=== PATIENT | female | born 1950 | race African-American/Black ===

== ENCOUNTER 2018-03-02 16:54 | Emergency (ER) | payer MEDICARE, BC ==
[~2018-03-02] VITALS: Ht 162.6 cm; Wt 60.0 kg
[~2018-03-02 16:54] MED LIST: AMLO5TAB4 GT; ASPI-1159 GT; CARDIZEM GT; CHOL100044 GT; COLACE GT; LABE300T GT; LEVE1000 GT; LIP40 PO; LOSA50TA20 GT; LOV40 SUBCUT; LYRICA GT; MIRT30TA GT; NICO1PAT16 TP; QUET100T GT
[2018-03-02 20:23] LABS: BASOPHILS % 0.7 % (0.0-2.0); EOSINOPHILS % 3.1 % (0.0-5.0); HEMATOCRIT. 36.3 % (36.0-48.0); LYMPHOCYTES % 30.6 % (20.0-50.0); MEAN CORPUSCULAR HEMOGLOBIN 29.7 pg (28.0-32.0); MEAN CORPUSCULAR VOLUME 89.6 fL (81.0-99.0); MONOCYTES % 10.8 % (2.0-8.0); NEUTROPHILS % 54.8 % (40.0-76.0); PLATELET 214 x1000/uL (130-400); RED BLOOD CELL COUNT 4.06 mill/uL (4.2-5.4)
[2018-03-02 20:27] LABS: CHLORIDE 107 mEq/L (98-107)
[2018-03-02 20:28] LABS: INR 1.1; PARTIAL THROMBOPLASTIN TIME 28.7 sec (23.4-31.0); PROTHROMBIN TIME 11.3 sec (9.4-11.6)
[2018-03-03 00:22] VITALS: BP 182/85
== END 2018-03-03 01:15 ==
LOC: ER 16:54
DX: S02.2XXA Fracture of nasal bones, initial encounter for closed fracture (principal); J44.9 Chronic obstructive pulmonary disease, unspecified; F03.90 Unspecified dementia, unspecified severity, without behavioral disturbance, psychotic disturbance, mood disturbance, and anxiety; E78.00 Pure hypercholesterolemia, unspecified; E03.9 Hypothyroidism, unspecified; I10 Essential (primary) hypertension; Z79.82 Long term (current) use of aspirin; Z88.8 Allergy status to other drugs, medicaments and biological substances; W05.0XXA Fall from non-moving wheelchair, initial encounter; Y93.89 Activity, other specified; Y92.89 Other specified places as the place of occurrence of the external cause; Y99.8 Other external cause status
CPT/HCPCS: 36415; 70450; 73521; 80053; 85025; 85610; 85730; 86850; 86900; 99285

== ENCOUNTER 2018-10-27 06:28 | Emergency (ER) | payer MEDICARE, BC, MEDICAID ==
[~2018-10-27] VITALS: Ht 170.2 cm; Wt 74.8 kg
[~2018-10-27 06:28] MED LIST changes: -LABE300T GT; +LABE300T3 GT
[2018-10-27] MEDS ORDERED: MORPHINE SULFATE 10 MG/ML CPJ IM ONE (09:45)
[2018-10-27 11:48] VITALS: BP 141/56
== END 2018-10-27 11:54 | disposition home or self-care (01) ==
LOC: ER 06:28
DX: S00.03XA Contusion of scalp, initial encounter (principal); J44.9 Chronic obstructive pulmonary disease, unspecified; E78.00 Pure hypercholesterolemia, unspecified; F03.90 Unspecified dementia, unspecified severity, without behavioral disturbance, psychotic disturbance, mood disturbance, and anxiety; I10 Essential (primary) hypertension; E03.9 Hypothyroidism, unspecified; W06.XXXA Fall from bed, initial encounter; Y93.89 Activity, other specified; Y92.89 Other specified places as the place of occurrence of the external cause; Y99.8 Other external cause status; Z98.890 Other specified postprocedural states; Z79.82 Long term (current) use of aspirin; Z79.899 Other long term (current) drug therapy; Z88.8 Allergy status to other drugs, medicaments and biological substances
CPT/HCPCS: 70450; 72125; 73060; 96372; 99284; J2270

== ENCOUNTER 2019-07-23 12:33 | Emergency (ER) | payer MEDICARE, BC ==
[~2019-07-23] VITALS: Ht 167.6 cm; Wt 75.0 kg
[~2019-07-23 12:33] MED LIST changes: -ASPI-1159 GT; +ASPI-1393 GT; -LOSA50TA20 GT; +LOSA50TA41 GT
[2019-07-23 14:31] LABS: BASOPHILS % 0.8 % (0.0-2.0); EOSINOPHILS % 2.1 % (0.0-5.0); LYMPHOCYTES % 29.5 % (20.0-50.0); MEAN CORPUSCULAR HEMOGLOBIN 30.8 pg (28.0-32.0); MEAN CORPUSCULAR VOLUME 92.5 fL (81.0-99.0); MEAN PLATELET VOLUME 10.3 fl (7.4-10.4); MONOCYTES % 11.6 % (2.0-8.0); PLATELET 195 x1000/uL (130-400); RED BLOOD CELL COUNT 4.21 mill/uL (4.2-5.4)
[2019-07-23 14:38] LABS: INR 1.1; PROTHROMBIN TIME 11.4 sec (9.6-11.0)
[2019-07-23 14:40] LABS: CHLORIDE 113 mEq/L (98-107)
[2019-07-23] MEDS ORDERED: DIATR MEGLU/DIATRIZOATE SOLN 30ML PEG SCH (16:00)
[2019-07-23 19:00] VITALS: BP 162/89
== END 2019-07-23 19:03 ==
LOC: ER 12:33
DX: K94.29 Other complications of gastrostomy (principal); F03.90 Unspecified dementia, unspecified severity, without behavioral disturbance, psychotic disturbance, mood disturbance, and anxiety; J44.9 Chronic obstructive pulmonary disease, unspecified; E78.00 Pure hypercholesterolemia, unspecified; I10 Essential (primary) hypertension; G40.909 Epilepsy, unspecified, not intractable, without status epilepticus; E03.9 Hypothyroidism, unspecified; I69.354 Hemiplegia and hemiparesis following cerebral infarction affecting left non-dominant side; Z88.8 Allergy status to other drugs, medicaments and biological substances; Y83.3 Surgical operation with formation of external stoma as the cause of abnormal reaction of the patient, or of later complication, without mention of misadventure at the time of the procedure; Y92.128 Other place in nursing home as the place of occurrence of the external cause
CPT/HCPCS: 36415; 74018; 99284; Q9963

== ENCOUNTER 2021-05-06 12:08 | Inpatient (IN) | payer MEDICARE, BC, MEDICAID ==
[~2021-05-06] VITALS: Ht 172.7 cm; Wt 75.3 kg
[~2021-05-06 12:08] MED LIST changes: -ASPI-1393 GT; +ASPI-1497 GT; -CARDIZEM GT; -COLACE GT; -LOV40 SUBCUT; -LYRICA GT; +MIRT-111 GT; -MIRT30TA GT; -NICO1PAT16 TP
[2021-05-06 15:23] LABS: BASOPHILS % 0.6 % (0.0-2.0); EOSINOPHILS % 2.2 % (0.0-5.0); HEMATOCRIT. 36.9 % (36.0-48.0); HEMOGLOBIN. 12.5 g/dL (12.0-16.0); LYMPHOCYTES % 24.5 % (20.0-50.0); MEAN CORPUSCULAR HEMOGLOBIN 31.4 pg (28.0-32.0); MEAN CORPUSCULAR VOLUME 92.7 fL (81.0-99.0); MEAN PLATELET VOLUME 9.8 fl (7.4-10.4); MONOCYTES % 9.1 % (2.0-8.0); NEUTROPHILS % 63.6 % (40.0-76.0); PLATELET 189 x1000/uL (130-400); RED BLOOD CELL COUNT 3.98 mill/uL (4.2-5.4); RED CELL DISTRIBUTION WIDTH 14.8 % (11.6-14.6)
[2021-05-06 15:27] LABS: CHLORIDE 109 mEq/L (98-107)
[2021-05-06] MEDS ORDERED: ACETAMINOPHEN 650MG SUPP PR PRN (20:45)
[2021-05-06] MEDS ORDERED: ONDANSETRON HCL 4MG/2ML INJ IV PRN (20:45)
[2021-05-06] MEDS ORDERED: CLONIDINE 0.1MG TABLET PO PRN (20:45)
[2021-05-06] MEDS: SODIUM CHLORIDE 0.9% 1,000 ML IV SCH (20:57)
[2021-05-06] MEDS: ENOXAPARIN 40MG/0.4ML SYR SUBCUT SCH (21:56)
[2021-05-06 22:30] VITALS: BP 127/73
[2021-05-07] VITALS: BP 144/70
[2021-05-07] MEDS: SODIUM CHLORIDE 0.9% 1,000 ML IV SCH ×3 (00:53→23:25)
[2021-05-07 01:07] LABS: INR 1.2; PROTHROMBIN TIME 12.4 sec (9.6-11.0)
[2021-05-07 04:00] VITALS: BP 113/18
[2021-05-07 07:04] LABS: CHLORIDE 108 mEq/L (98-107)
[2021-05-07] MEDS ORDERED: VALP250S4 GT (07:04)
[2021-05-07] MEDS ORDERED: ERGO1250 GT (07:04)
[2021-05-07 07:22] LABS: BASOPHILS % 0.5 % (0.0-2.0); EOSINOPHILS % 1.1 % (0.0-5.0); HEMATOCRIT. 37.6 % (36.0-48.0); HEMOGLOBIN. 12.4 g/dL (12.0-16.0); LYMPHOCYTES % 25.8 % (20.0-50.0); MEAN CORPUSCULAR VOLUME 93.8 fL (81.0-99.0); MEAN PLATELET VOLUME 9.9 fl (7.4-10.4); MONOCYTES % 12.6 % (2.0-8.0); PLATELET 197 x1000/uL (130-400); RED BLOOD CELL COUNT 4.01 mill/uL (4.2-5.4); RED CELL DISTRIBUTION WIDTH 14.9 % (11.6-14.6)
[2021-05-07 08:00] VITALS: BP 145/88
[2021-05-07 12:00] VITALS: BP 147/77
[2021-05-07] MEDS: LORAZEPAM 2MG/ML CPJ IV PRN (13:03)
[2021-05-07 16:00] VITALS: BP 145/78
[2021-05-07 20:00] VITALS: BP 152/74
[2021-05-07] MEDS: ENOXAPARIN 40MG/0.4ML SYR SUBCUT SCH (21:04)
[2021-05-08] VITALS: BP 144/70
[2021-05-08] MEDS: IPRATROPIUM/ALBUTEROL 0.5-3(2.5)MG/3ML NEB HHN PRN (02:02)
[2021-05-08 04:00] VITALS: BP 159/83
[2021-05-08 08:00] VITALS: BP 156/83
[2021-05-08] MEDS: DEXT 5%/0.45% NACL 1000ML 1,000 ML IV SCH (10:00)
[2021-05-08 12:00] VITALS: BP 166/78
[2021-05-08] MEDS: LORAZEPAM 2MG/ML CPJ IV PRN (13:21)
[2021-05-08 16:00] VITALS: BP 145/89
[2021-05-08] MEDS ORDERED: HYDRALAZINE 10 MG in SODIUM CHLORIDE 0.9% 49.5 ML IV PRN (16:00)
[2021-05-08 16:33] LABS: CHLORIDE 111 mEq/L (98-107)
[2021-05-08 20:00] VITALS: BP 158/88
[2021-05-08] MEDS: ENOXAPARIN 40MG/0.4ML SYR SUBCUT SCH (20:08)
[2021-05-09] VITALS: BP 138/86
[2021-05-09 04:00] VITALS: BP 138/67
[2021-05-09] MEDS: LORAZEPAM 2MG/ML CPJ IV PRN (04:08)
[2021-05-09] MEDS: DEXT 5%/0.45% NACL 1000ML 1,000 ML IV SCH (04:08)
[2021-05-09] MEDS: IPRATROPIUM/ALBUTEROL 0.5-3(2.5)MG/3ML NEB HHN PRN (06:47)
[2021-05-09 07:25] LABS: INR 1.2; PROTHROMBIN TIME 12.3 sec (9.6-11.0)
[2021-05-09 07:26] LABS: CHLORIDE 111 mEq/L (98-107)
[2021-05-09 07:33] LABS: BASOPHILS % 0.6 % (0.0-2.0); EOSINOPHILS % 4.4 % (0.0-5.0); HEMATOCRIT. 34.5 % (36.0-48.0); HEMOGLOBIN. 11.4 g/dL (12.0-16.0); LYMPHOCYTES % 33.7 % (20.0-50.0); MEAN CORPUSCULAR HEMOGLOBIN 31.1 pg (28.0-32.0); MEAN CORPUSCULAR VOLUME 93.5 fL (81.0-99.0); MEAN PLATELET VOLUME 10.1 fl (7.4-10.4); MONOCYTES % 10.6 % (2.0-8.0); NEUTROPHILS % 50.7 % (40.0-76.0); PLATELET 147 x1000/uL (130-400); RED BLOOD CELL COUNT 3.69 mill/uL (4.2-5.4)
[2021-05-09 08:00] VITALS: BP 124/54
[2021-05-09] MEDS ORDERED: POTASSIUM CHLORIDE INJ 40 MEQ in DEXT 5% WATER 500 ML IV SCH (11:00)
[2021-05-09] MEDS: LEVETIRACETAM 250 MG in SODIUM CHLORIDE 0.9% 100 ML IV SCH ×3 (11:00→21:41)
[2021-05-09] MEDS ORDERED: POTASSIUM CHLORIDE INJ 40 MEQ in DEXT 5% WATER 500 ML IV ONE (11:00)
[2021-05-09 12:00] VITALS: BP 117/51
[2021-05-09] MEDS ORDERED: POTASSIUM CHLORIDE 20MEQ/PACKET PO SCH (12:45)
[2021-05-09 16:00] VITALS: BP 121/61
[2021-05-09] MEDS ORDERED: CEFAZOLIN 1000MG PREMIX 50 ML IV NR (16:00)
[2021-05-09 20:00] VITALS: BP 113/47
[2021-05-09] MEDS: ENOXAPARIN 40MG/0.4ML SYR SUBCUT SCH (21:00)
[2021-05-10] VITALS: BP 122/81
[2021-05-10] MEDS: DEXT 5%/0.45% NACL 1000ML 1,000 ML IV SCH (01:00)
[2021-05-10 04:00] VITALS: BP 134/76
[2021-05-10 06:16] LABS: BASOPHILS % 0.6 % (0.0-2.0); EOSINOPHILS % 4.3 % (0.0-5.0); HEMATOCRIT. 37.7 % (36.0-48.0); HEMOGLOBIN. 12.3 g/dL (12.0-16.0); MEAN CORPUSCULAR HEMOGLOBIN 31.3 pg (28.0-32.0); MEAN CORPUSCULAR VOLUME 95.9 fL (81.0-99.0); MEAN PLATELET VOLUME 10.2 fl (7.4-10.4); MONOCYTES % 12.4 % (2.0-8.0); NEUTROPHILS % 54.7 % (40.0-76.0); PLATELET 147 x1000/uL (130-400); RED BLOOD CELL COUNT 3.93 mill/uL (4.2-5.4); RED CELL DISTRIBUTION WIDTH 15.1 % (11.6-14.6)
[2021-05-10 06:31] LABS: CHLORIDE 113 mEq/L (98-107)
[2021-05-10 08:00] VITALS: BP 128/67
[2021-05-10] MEDS: LEVETIRACETAM 250 MG in SODIUM CHLORIDE 0.9% 100 ML IV SCH ×3 (09:00→21:11)
[2021-05-10] MEDS: IPRATROPIUM/ALBUTEROL 0.5-3(2.5)MG/3ML NEB HHN PRN (09:30)
[2021-05-10] MEDS ORDERED: LIDOCAINE HCL 1% 20ML VIAL (Pyxis) INJ ONE (10:59)
[2021-05-10 12:00] VITALS: BP 155/60
[2021-05-10] MEDS: DEXT 5% WATER + KCL 20MEQ/L 1,000 ML IV SCH (12:48)
[2021-05-10] MEDS ORDERED: CEFAZOLIN 1000MG PREMIX 50 ML IV ONE (14:30)
[2021-05-10 16:00] VITALS: BP 168/67
[2021-05-10] MEDS ORDERED: PROPOFOL 200MG/20ML VIAL IV ONE (16:30)
[2021-05-10] MEDS ORDERED: MIDAZOLAM HCL 5 MG/5 ML VIAL ONE (16:30)
[2021-05-10] MEDS ORDERED: SUCCINYLCHOLINE CHLORIDE 200MG/10ML IV ONE (16:31)
[2021-05-10] MEDS ORDERED: ONDANSETRON HCL 4MG/2ML INJ IV PRN (17:30)
[2021-05-10] MEDS ORDERED: HYDROMORPHONE HCL/PF 2MG/ML CPJ IV PRN (17:30)
[2021-05-10] MEDS ORDERED: SODIUM CHLORIDE 0.9% 1,000 ML IV ONE (17:30)
[2021-05-10] MEDS ORDERED: MORPHINE SULFATE 2 MG/ML CPJ (NOT FOR IM USE) IV PRN (17:30)
[2021-05-10] MEDS ORDERED: LABETALOL 5MG/ML SYR 20 MG/4 ML SYRINGE IV NR (18:00)
[2021-05-10] MEDS ORDERED: BLOOD SUGAR DIAGNOSTIC STRIP TEST SCH (19:00)
[2021-05-10] MEDS ORDERED: DEXTROSE 50% WATER 50ML SYRINGE IV PRN (19:00)
[2021-05-10 20:00] VITALS: BP 149/82
[2021-05-10] MEDS: BLOOD SUGAR DIAGNOSTIC STRIP TEST SCH (20:42)
[2021-05-10] MEDS: INSULIN LISPRO 100 UNITS/ML SUBCUT SCH (21:00)
[2021-05-10] MEDS ORDERED: INSULIN LISPRO 100 UNITS/ML SUBCUT SCH (21:00)
[2021-05-10] MEDS: IPRATROPIUM/ALBUTEROL 0.5-3(2.5)MG/3ML NEB HHN SCH (21:08)
[2021-05-10] MEDS: ENOXAPARIN 40MG/0.4ML SYR SUBCUT SCH (21:12)
[2021-05-11] VITALS: BP 137/67
[2021-05-11] MEDS: IPRATROPIUM/ALBUTEROL 0.5-3(2.5)MG/3ML NEB HHN SCH ×6 (00:53→20:08)
[2021-05-11 04:00] VITALS: BP 150/61
[2021-05-11] MEDS: LORAZEPAM 2MG/ML CPJ IV PRN ×2 (04:25→21:02)
[2021-05-11] MEDS: DEXT 5% WATER + KCL 20MEQ/L 1,000 ML IV SCH (06:48)
[2021-05-11 07:18] LABS: CHLORIDE 111 mEq/L (98-107)
[2021-05-11 07:23] LABS: BASOPHILS % 0.4 % (0.0-2.0); EOSINOPHILS % 2.8 % (0.0-5.0); HEMATOCRIT. 34.3 % (36.0-48.0); HEMOGLOBIN. 11.2 g/dL (12.0-16.0); LYMPHOCYTES % 33.7 % (20.0-50.0); MEAN CORPUSCULAR HEMOGLOBIN 31.2 pg (28.0-32.0); MEAN CORPUSCULAR VOLUME 95.6 fL (81.0-99.0); MEAN PLATELET VOLUME 10.4 fl (7.4-10.4); MONOCYTES % 11.9 % (2.0-8.0); NEUTROPHILS % 51.2 % (40.0-76.0); PLATELET 116 x1000/uL (130-400); RED BLOOD CELL COUNT 3.59 mill/uL (4.2-5.4); RED CELL DISTRIBUTION WIDTH 14.7 % (11.6-14.6)
[2021-05-11 08:00] VITALS: BP 166/65
[2021-05-11] MEDS: INSULIN LISPRO 100 UNITS/ML SUBCUT SCH ×2 (09:00→20:59)
[2021-05-11] MEDS ORDERED: POTASSIUM CHLORIDE 20MEQ TABLET SR PO NR (09:00)
[2021-05-11] MEDS ORDERED: PANTOPRAZOLE SODIUM 40 MG/VIAL IV SCH (09:00)
[2021-05-11] MEDS: BLOOD SUGAR DIAGNOSTIC STRIP TEST SCH ×2 (09:15→20:59)
[2021-05-11] MEDS ORDERED: PANTOPRAZOLE 40MG DR TABLET PO ONE (09:30)
[2021-05-11] MEDS: LEVETIRACETAM 250 MG in SODIUM CHLORIDE 0.9% 100 ML IV SCH (10:00)
[2021-05-11 12:00] VITALS: BP 167/71
[2021-05-11 16:00] VITALS: BP 164/64
[2021-05-11 20:00] VITALS: BP 144/81
[2021-05-11] MEDS: LEVETIRACETAM 500MG/5ML CUP GT SCH (20:59)
[2021-05-11] MEDS: ENOXAPARIN 40MG/0.4ML SYR SUBCUT SCH (21:00)
[2021-05-12] VITALS: BP 103/56
[2021-05-12] MEDS: IPRATROPIUM/ALBUTEROL 0.5-3(2.5)MG/3ML NEB HHN SCH ×4 (00:29→12:09)
[2021-05-12 04:00] VITALS: BP 109/54
[2021-05-12] MEDS: LORAZEPAM 2MG/ML CPJ IV PRN (06:52)
[2021-05-12] MEDS ORDERED: LANSOPRAZOLE 30MG DR CAPSULE GT SCH (07:20)
[2021-05-12] MEDS ORDERED: PANTOPRAZOLE 40MG DR TABLET PO SCH (07:20)
[2021-05-12 08:00] VITALS: BP 133/51
[2021-05-12 08:24] LABS: BASOPHILS % 0.5 % (0.0-2.0); EOSINOPHILS % 4.7 % (0.0-5.0); HEMATOCRIT. 30.8 % (36.0-48.0); HEMOGLOBIN. 10.2 g/dL (12.0-16.0); LYMPHOCYTES % 30.2 % (20.0-50.0); MEAN CORPUSCULAR VOLUME 93.1 fL (81.0-99.0); MEAN PLATELET VOLUME 10.3 fl (7.4-10.4); MONOCYTES % 12.1 % (2.0-8.0); NEUTROPHILS % 52.5 % (40.0-76.0); PLATELET 123 x1000/uL (130-400); RED BLOOD CELL COUNT 3.31 mill/uL (4.2-5.4); RED CELL DISTRIBUTION WIDTH 14.4 % (11.6-14.6)
[2021-05-12] MEDS: INSULIN LISPRO 100 UNITS/ML SUBCUT SCH (08:50)
[2021-05-12 08:56] LABS: CHLORIDE 104 mEq/L (98-107)
[2021-05-12] MEDS: LEVETIRACETAM 500MG/5ML CUP GT SCH (09:13)
[2021-05-12] MEDS: BLOOD SUGAR DIAGNOSTIC STRIP TEST SCH (09:26)
[2021-05-12 11:21] VITALS: BP 133/51
== END 2021-05-12 12:55 | DRG 393 ==
LOC: ER 12:08 → 6EST 17:43 → ENRESERV 21:40
PROVIDERS: ADMIT Internal Medicine Geriatric Medicine; ATTEND Internal Medicine Geriatric Medicine
PROC: 0DH63UZ Insertion of Feeding Device into Stomach, Percutaneous Approach (ICD-10-PCS; principal; 2021-05-10)
PROC: 02HV33Z Insertion of Infusion Device into Superior Vena Cava, Percutaneous Approach (ICD-10-PCS; 2021-05-10)
PROC: B518ZZA Fluoroscopy of Superior Vena Cava, Guidance (ICD-10-PCS; 2021-05-10)
PROC: B548ZZA Ultrasonography of Superior Vena Cava, Guidance (ICD-10-PCS; 2021-05-10)
DX: K94.23 Gastrostomy malfunction (principal); N18.6 End stage renal disease; G93.40 Encephalopathy, unspecified; E44.1 Mild protein-calorie malnutrition; F01.51 Vascular dementia, unspecified severity, with behavioral disturbance; J44.1 Chronic obstructive pulmonary disease with (acute) exacerbation; E03.9 Hypothyroidism, unspecified; E78.00 Pure hypercholesterolemia, unspecified; I10 Essential (primary) hypertension; R13.12 Dysphagia, oropharyngeal phase; G40.909 Epilepsy, unspecified, not intractable, without status epilepticus; K44.9 Diaphragmatic hernia without obstruction or gangrene; K26.9 Duodenal ulcer, unspecified as acute or chronic, without hemorrhage or perforation; E87.6 Hypokalemia; D63.8 Anemia in other chronic diseases classified elsewhere; E78.5 Hyperlipidemia, unspecified; K29.70 Gastritis, unspecified, without bleeding; Z20.822 Contact with and (suspected) exposure to COVID-19; I69.311 Memory deficit following cerebral infarction; Z88.8 Allergy status to other drugs, medicaments and biological substances; Z79.82 Long term (current) use of aspirin; Z79.899 Other long term (current) drug therapy; Z68.25 Body mass index [BMI] 25.0-25.9, adult; E11.40 Type 2 diabetes mellitus with diabetic neuropathy, unspecified
CPT/HCPCS: 36415; 36573; 71045; 80048; 80053; 82962; 83036; 83735; 85025; 87426; 93005; 94640; 99285; A6261; C1725; C1893; C9113; J0330; J0690; J1650; J1953; J2060; J2250; J2704; J3480; J3490; J7042; J7050; J7060